=== PATIENT | female | born 1990 | race Caucasian/White ===

== ENCOUNTER 2021-03-26 15:54 | Emergency (ER) | payer MEDICAID, OTHER ==
[~2021-03-26] VITALS: Ht 157.5 cm; Wt 71.4 kg
[2021-03-26 20:30] VITALS: BP 118/63
== END 2021-03-26 20:57 | disposition home or self-care (01) ==
LOC: EMS 15:54
DX: I80.8 Phlebitis and thrombophlebitis of other sites (principal)
CPT/HCPCS: 93971; 99284; Z7502